=== PATIENT | female | born 1995 | race Hispanic/Latino ===

== ENCOUNTER 2022-01-24 14:29 | Outpatient (CLI) | payer OTHER | END 2022-01-24 14:30 | disposition home or self-care (01) | LOC: CSHULT 14:29 | PROVIDERS: ATTEND Family Medicine | DX: O09.892 Supervision of other high risk pregnancies, second trimester (principal); Z3A.21 21 weeks gestation of pregnancy | CPT/HCPCS: 76805 ==

== ENCOUNTER 2022-05-23 20:59 | Inpatient (IN) | payer OTHER ==
[~2022-05-23 20:59] MED LIST: Bupivacaine/Epinephrine 0.25% 30 ML VIAL ONE
[2022-05-23 21:25] VITALS: BMI 34.2
[2022-05-23] MEDS ORDERED: hydrALAZINE 20 MG/ML VIAL SLOW IVP PRN ×2 (21:35→22:26)
[2022-05-23] MEDS ORDERED: Acetaminophen 500 MG TAB PO SCH (22:15)
[2022-05-23] MEDS ORDERED: Methylergonovine 0.2 MG/ML VIAL IM PRN (22:26)
[2022-05-23] MEDS ORDERED: Lidocaine 1% (PF) 30 ML VIAL SC PRN (22:26)
[2022-05-23] MEDS ORDERED: Carboprost 250 MCG/ML AMP IM PRN (22:26)
[2022-05-23] MEDS ORDERED: Butorphanol Tartrate 1 MG/ML VIAL SLOW IVP PRN (22:26)
[2022-05-23] MEDS ORDERED: Ondansetron PF 4 MG/2 ML Vial IVP PRN ×2 (22:26→23:14)
[2022-05-23] MEDS ORDERED: Misoprostol 200 MCG TAB PR PRN (22:26)
[2022-05-23] MEDS ORDERED: Diphenoxylate HCl/Atropine Tablet PO PRN (22:26)
[2022-05-23] MEDS ORDERED: Promethazine HCl 25 MG/ML VIAL IM PRN ×2 (22:26→23:14)
[2022-05-23] MEDS ORDERED: Lactated Ringer's 1,000 ML IV SCH (22:30)
[2022-05-23] MEDS ORDERED: NS w/ Oxytocin 30 units 500 ML IV SCH ×2 (22:30)
[2022-05-23] MEDS ORDERED: Fentanyl 2 mcg/Bup 0.1% Cadd 100 ML ONE (22:47)
[2022-05-23 23:10] LABS: Hemoglobin 10.3 g/dL (12.0-15.5); Mean Corpuscular HGB CONC 30.9 g/dL (32.0-36.0); Mean Corpuscular Hemoglobin 23.4 pg (27.0-33.0); Mean Corpuscular Volume 75.5 fl (81.6-98.3); Mean Platelet Volume 12.3 fl (7.4-10.4); Platelet Count 256 10x3/uL (150-450); Red Blood Cell (RBC) Count 4.41 10x6/uL (3.90-5.03); White Blood Cell (WBC) Count 12.1 10x3/uL (3.5-10.5)
[2022-05-23] MEDS ORDERED: Acetaminophen 325 MG TAB PO PRN (23:14)
[2022-05-23] MEDS ORDERED: diphenhydrAMINE 50 MG/ML VIAL IVP PRN (23:14)
[2022-05-23] MEDS ORDERED: Moisturizing Cream (Eucerin) 113 GM JAR TOP PRN (23:14)
[2022-05-23] MEDS ORDERED: Naloxone HCl 0.4 mg/ml Vial IVP PRN ×2 (23:14)
[2022-05-23] MEDS ORDERED: Lactated Ringer's 500 ML IV PRN (23:14)
[2022-05-23] MEDS ORDERED: ePHEDrine Sulfate 50 MG/10 ML VIAL SLOW IVP PRN (23:14)
[2022-05-23] MEDS ORDERED: Communication Order-Pharmacy FS SCH (23:15)
[2022-05-23] MEDS ORDERED: Fentanyl 2 mcg/Bupivacaine 0.1% Cassette 100 ML EPIDURAL SCH (23:15)
[2022-05-24] MEDS ORDERED: Calcium Carbonate 500 MG ChewTAB PO PRN (01:10)
[2022-05-24] MEDS ORDERED: Calcium Carbonate 500 MG ChewTAB ONE (01:17)
[2022-05-24 02:04] LABS: Syphilis Antibody Nonreactive (Nonreactive); Syphilis Antibody Index 0.02 S/CO (<1.00 Non-Reactive)
[2022-05-24 02:05] LABS: HBSAg Index 0.18 S/CO (0-0.99); Hep B Surf Ag Non-Reactive S/CO (NonReactive)
[2022-05-24] MEDS ORDERED: Milk Of Magnesia 30 ML UDCUP PO PRN (04:16)
[2022-05-24] MEDS ORDERED: Promethazine HCl 25 MG/ML VIAL IM PRN (04:16)
[2022-05-24] MEDS ORDERED: Lanolin Ointment 7 GM TUBE TOP PRN (04:16)
[2022-05-24] MEDS ORDERED: Boostrix 0.5 ML (Tdap) VIAL (>/=7 yrs of age) IM ONE (04:16)
[2022-05-24] MEDS ORDERED: NS w/ Oxytocin 30 units 500 ML IV SCH (04:16)
[2022-05-24] MEDS ORDERED: diphenhydrAMINE 25 MG CAP PO PRN (04:16)
[2022-05-24] MEDS ORDERED: Bisacodyl 10 MG SUPP PR PRN (04:16)
[2022-05-24] MEDS ORDERED: Ondansetron PF 4 MG/2 ML Vial IVP PRN (04:16)
[2022-05-24] MEDS ORDERED: Preparation H Ointment 28 GM TUBE PR PRN (04:16)
[2022-05-24] MEDS ORDERED: Benzocaine-Menthol 82.5 ML CAN TOP PRN (04:16)
[2022-05-24] MEDS ORDERED: hydrALAZINE 20 MG/ML VIAL SLOW IVP PRN (04:16)
[2022-05-24] MEDS: Ibuprofen 800 MG TAB PO SCH ×3 (05:07→21:20)
[2022-05-24] MEDS: Prenatal Vitamin 1 TAB PO SCH (08:31)
[2022-05-24] MEDS: Ferrous Sulfate 325 MG TAB PO SCH ×2 (08:32→16:34)
[2022-05-24] MEDS: Docusate 100 MG CAP PO SCH ×2 (08:32→21:20)
[2022-05-24] MEDS: HYDROcodone/Acetaminophen 5/325 mg Tablet PO PRN ×3 (11:06→21:21)
[2022-05-25] MEDS: Ibuprofen 800 MG TAB PO SCH (05:50)
[2022-05-25 07:58] VITALS: BP 103/56; TEMP 97.8
[2022-05-25] MEDS: Ferrous Sulfate 325 MG TAB PO SCH (08:43)
[2022-05-25] MEDS: Docusate 100 MG CAP PO SCH (08:43)
[2022-05-25] MEDS: Prenatal Vitamin 1 TAB PO SCH (08:43)
== END 2022-05-25 12:55 | disposition home or self-care (01) | DRG 807 ==
LOC: CSHLD/OP 20:59 → CSHLD 22:27 → UNDOADMIN 05-24 01:52 → CSHLD 05-24 04:15 → CSHPP 05-24 04:15
PROVIDERS: ADMIT Family Medicine; ATTEND Family Medicine
PROC: 10E0XZZ Delivery of Products of Conception, External Approach (ICD-10-PCS; principal; 2022-05-24)
DX: O99.02 Anemia complicating childbirth (principal); Z37.0 Single live birth; D64.9 Anemia, unspecified; Z3A.38 38 weeks gestation of pregnancy
CPT/HCPCS: 51702; 85027; 86780; 86850; 86900; 86901; 87340; J2590; J7120

== ENCOUNTER 2023-01-25 12:29 | Outpatient (CLI) | payer OTHER | END 2023-01-25 12:30 | disposition home or self-care (01) | LOC: CSHULT 12:29 | PROVIDERS: ATTEND Family Medicine | DX: O09.892 Supervision of other high risk pregnancies, second trimester (principal); Z3A.22 22 weeks gestation of pregnancy | CPT/HCPCS: 76805 ==

== ENCOUNTER 2023-05-20 21:27 | Inpatient (IN) | payer OTHER, SELFPAY ==
[~2023-05-20 21:27] MED LIST changes: +Bupivacaine 0.25% HCL 30 ML VIAL ONE; -Bupivacaine/Epinephrine 0.25% 30 ML VIAL ONE
[2023-05-20 22:25] VITALS: BMI 33.2
[2023-05-20 22:56] LABS: Fetal Membranes Rupture RUPTURE DETECTED (No Rupture)
[2023-05-20 23:31] LABS: #Basophils 0.1 10x3/uL (0.0-0.2); #Eosinphils 0.1 10x3/uL (0.0-0.5); #Monocytes 0.7 10x3/uL (0.0-1.1); #Neutrophils 8.7 10x3/uL (1.5-8.4); %Basophils 0.5 % (0.0-2.0); %Eosinophils 0.5 % (0.0-6.0); %Lymphocytes 20.6 % (18.0-47.0); %Neutrophils 71.7 % (40.0-75.0); Hematocrit 31.1 % (34.9-44.5); Hemoglobin 9.3 g/dL (12.0-15.5); Mean Corpuscular HGB CONC 29.9 g/dL (32.0-36.0); Mean Corpuscular Hemoglobin 22.2 pg (27.0-33.0); Mean Corpuscular Volume 74.2 fl (81.6-98.3); Mean Platelet Volume 12.4 fl (7.4-10.4); Platelet Count 241 10x3/uL (150-450); RBC Distribution Width 15.3 % (11.5-14.5); Red Blood Cell (RBC) Count 4.19 10x6/uL (3.90-5.03); White Blood Cell (WBC) Count 12.1 10x3/uL (3.5-10.5)
[2023-05-20 23:43] LABS: ALT (SGPT) Less than 7 U/L (8-55); AST (SGOT) 16 U/L (5-34); Albumin 3.3 g/dL (3.5-5.0); Alkaline Phosphatase 188 U/L (40-110); Anion Gap 15 mmol/L (10-20); BUN (Urea Nitrogen) 13 mg/dL (7.0-18.7); Bilirubin, Total 0.3 mg/dL (0.2-1.2); Calc. Creatinine Clearance 167 mL/min (70-130); Calcium 9.1 mg/dL (7.8-10.44); Carbon Dioxide 18 mmol/L (22-29); Chloride 106 mmol/L (98-107); Estimated GFR 126; Globulin 3.3 g/dL (2.4-3.5); Glucose 97 mg/dL (70-105); Potassium 4.1 mmol/L (3.5-5.1); Protein, Total 6.6 g/dL (6.0-8.3); Sodium 135 mmol/L (136-145)
[2023-05-20] MEDS ORDERED: fentaNYL/Ropivacaine Epidural 100 ML ONE (23:45)
[2023-05-20] MEDS ORDERED: hydrALAZINE 20 MG/ML VIAL ONE (23:53)
[2023-05-21] MEDS ORDERED: Tranexamic Acid 1,000 MG/10 ML VIAL IVP PRN (00:13)
[2023-05-21] MEDS ORDERED: fentaNYL 50 mcg/mL 1 mL Vial SLOW IVP PRN (00:13)
[2023-05-21] MEDS ORDERED: Oxytocin 30 units/NS 500 ML 500 ML IVPB SCH (00:15)
[2023-05-21] MEDS ORDERED: Acetaminophen 500 MG TAB PO PRN (00:15)
[2023-05-21] MEDS ORDERED: Promethazine HCl 25 MG/ML VIAL IM PRN ×3 (00:15→05:17)
[2023-05-21] MEDS ORDERED: Diphenoxylate HCl/Atropine Tablet PO PRN ×2 (00:15)
[2023-05-21] MEDS ORDERED: HYDROcodone/Acetaminophen 5/325 mg Tablet PO PRN ×2 (00:15)
[2023-05-21] MEDS ORDERED: Misoprostol 200 MCG TAB RC PRN (00:15)
[2023-05-21] MEDS ORDERED: Lidocaine 1% (PF) 30 ML VIAL SC PRN (00:15)
[2023-05-21] MEDS ORDERED: Lactated Ringer's 1,000 ML IV SCH (00:15)
[2023-05-21] MEDS ORDERED: Oxytocin 30 units/NS 500 ML 500 ML IV SCH (00:15)
[2023-05-21] MEDS ORDERED: hydrALAZINE 20 MG/ML VIAL SLOW IVP PRN ×2 (00:15→05:17)
[2023-05-21] MEDS ORDERED: Ibuprofen 800 MG TAB PO PRN (00:15)
[2023-05-21] MEDS ORDERED: Methylergonovine 0.2 MG/ML VIAL IM PRN (00:15)
[2023-05-21] MEDS ORDERED: Ondansetron PF 4 MG/2 ML Vial IVP PRN ×3 (00:15→05:17)
[2023-05-21] MEDS ORDERED: Carboprost 250 MCG/ML AMP IM PRN (00:15)
[2023-05-21 00:20] LABS: HBSAg Index 0.16 S/CO (0-0.99); Hep B Surf Ag - L&D Non-Reactive S/CO (NonReactive)
[2023-05-21 00:21] LABS: Syphilis Antibody Nonreactive (Nonreactive); Syphilis Antibody Index 0.03 S/CO (<1.00 Non-Reactive)
[2023-05-21] MEDS ORDERED: ePHEDrine Sulfate 50 MG/10 ML VIAL SLOW IVP PRN (00:28)
[2023-05-21] MEDS ORDERED: Naloxone HCl 0.4 mg/ml Vial IVP PRN ×2 (00:28)
[2023-05-21] MEDS ORDERED: Acetaminophen 325 MG TAB PO PRN (00:28)
[2023-05-21] MEDS ORDERED: diphenhydrAMINE 50 MG/ML VIAL IVP PRN (00:28)
[2023-05-21] MEDS ORDERED: Lactated Ringer's 500 ML IV PRN (00:28)
[2023-05-21] MEDS ORDERED: Moisturizing Cream (Eucerin) 113 GM JAR TOP PRN (00:28)
[2023-05-21] MEDS ORDERED: Communication Order-Pharmacy FS SCH (00:30)
[2023-05-21] MEDS ORDERED: Penicillin G Potassium 5 MILL.UNITS in Sodium Chloride 0.9% 100 ML IVPB SCH (00:30)
[2023-05-21] MEDS ORDERED: fentaNYL 2 mcg/Ropivacaine 0.2% Epidural 100 ML CADD EPIDURAL SCH (00:30)
[2023-05-21 00:38] LABS: Platelet Adequacy Comment Appears Adequate
[2023-05-21 00:39] LABS: Hypochromia SLIGHT = 6-15 cells (100X) (0-5/hpf); Microcytosis SLIGHT = 6-15 cells (100X) (0-5/hpf)
[2023-05-21 01:02] LABS: Bilirubin Neg (Negative); Blood, Urine 25 (Negative); Clarity Clear (Clear); Glucose, Urine (Dipstick) Normal (Negative); Ketone, Urine Negative (Negative); Leukocyte 25 (Negative); Nitrite Negative (Negative); Protein, Urine (Dipstick) 30 mg/dl (Neg-Trace); Urobilinogen Normal mg/dL (Less than 2)
[2023-05-21 01:29] LABS: Bacteria/HPF None Seen HPF (None Seen); CAUTI Indications for Culture Pregnancy; RBC/HPF 0-3 HPF (0-3); Squamous Epithelial 0-3 HPF (0-3)
[2023-05-21 01:31] LABS: Urine Culture Reflex Yes Yes
[2023-05-21] MEDS ORDERED: Penicillin G 2.5 MILL.units 2.5 MILL.UNITS in Premix 1 BAG IVPB SCH (04:30)
[2023-05-21] MEDS ORDERED: Lanolin Ointment 7 GM TUBE TOP PRN (05:17)
[2023-05-21] MEDS ORDERED: Milk Of Magnesia 30 ML UDCUP PO PRN (05:17)
[2023-05-21] MEDS ORDERED: Boostrix 0.5 ML (Tdap) VIAL (>/=7 yrs of age) IM ONE (05:17)
[2023-05-21] MEDS ORDERED: diphenhydrAMINE 25 MG CAP PO PRN (05:17)
[2023-05-21] MEDS ORDERED: Bisacodyl 10 MG SUPP PR PRN (05:17)
[2023-05-21] MEDS: Ibuprofen 800 MG TAB PO SCH ×3 (06:05→22:59)
[2023-05-21] MEDS: Docusate 100 MG CAP PO SCH ×2 (08:43→22:59)
[2023-05-21] MEDS: Prenatal Vitamin 1 TAB PO SCH (08:43)
[2023-05-21] MEDS: Ferrous Sulfate 325 MG TAB PO SCH ×2 (08:43→18:31)
[2023-05-21] MEDS: traMADol HCl 50 MG TAB PO PRN ×3 (09:40→22:59)
[2023-05-21 14:01] LABS: Uric Acid 5.8 mg/dL (2.6-6.0)
[2023-05-22] MEDS: Ibuprofen 800 MG TAB PO SCH ×2 (06:08→14:13)
[2023-05-22] MEDS: traMADol HCl 50 MG TAB PO PRN (06:09)
[2023-05-22 08:10] VITALS: TEMP 97.9
[2023-05-22] MEDS: Ferrous Sulfate 325 MG TAB PO SCH (09:18)
[2023-05-22] MEDS: Docusate 100 MG CAP PO SCH (09:18)
[2023-05-22] MEDS: Prenatal Vitamin 1 TAB PO SCH (09:18)
[2023-05-22] MEDS ORDERED: Acetaminophen 500 MG TAB PO PRN (09:50)
[2023-05-22 11:47] VITALS: BP 138/84
== END 2023-05-22 18:40 | disposition home or self-care (01) | DRG 807 ==
LOC: CSHLD/OP 21:27 → CSHLD 23:03 → CSHPP 05-21 05:05
PROVIDERS: ADMIT Family Medicine; ATTEND Family Medicine
PROC: 10E0XZZ Delivery of Products of Conception, External Approach (ICD-10-PCS; principal; 2023-05-21)
PROC: 3E033XZ Introduction of Vasopressor into Peripheral Vein, Percutaneous Approach (ICD-10-PCS; 2023-05-21)
DX: O42.02 Full-term premature rupture of membranes, onset of labor within 24 hours of rupture (principal); O24.429 Gestational diabetes mellitus in childbirth, unspecified control; Z37.0 Single live birth; Z3A.37 37 weeks gestation of pregnancy
CPT/HCPCS: 36415; 51702; 80053; 81001; 82570; 84112; 84156; 84550; 85025; 86780; 86850; 86900; 86901; 87086; 87340; 99285; J0360; J2540; J3490; S0020